=== PATIENT | female | born 1985 | race African-American/Black ===

== ENCOUNTER 2017-05-30 13:02 | Inpatient (IN) | payer SELFPAY ==
[~2017-05-30] VITALS: Ht 177.8 cm; Wt 126.0 kg
[2017-05-30] MEDS ORDERED: PROMETHAZINE HCL 25 MG/ML 1ML IM ONE (15:00)
[2017-05-30] MEDS ORDERED: HYDROmorphone HCL 2 MG/ML VL IM ONE (15:00)
[2017-05-30 15:50] LABS: Basophils # (auto) 0 uL; Basophils % (auto) 0.4 % (0.0-2.0); Eosinophils # (auto) 0 uL; Eosinophils % (auto) 0.8 % (0.0-7.0); Hematocrit 29.1 % (36.0-46.0); Hemoglobin 9.3 g/dL (12.2-16.2); Lymphocytes # (auto) 0.4 uL; Lymphocytes % (auto) 10.2 % (10.0-50.0); Mean Corpuscular Hemoglobin 30.6 pg (28.0-32.0); Mean Corpuscular Volume 95.6 fL (80.0-100.0); Mean Platelet Volume 7.8 fL (6.9-10.8); Monocytes # (auto) 0.4 uL; Monocytes % (auto) 9.7 % (0.0-12.0); Neutrophils # (auto) 3.1 uL; Neutrophils % (auto) 78.9 % (37.0-80.0); Nucleated Red Blood Cells % 0.4 %; Platelet Count (auto) 174 10^3/uL (140-450); Red Cell Distribution Width 18.2 % (11.8-14.3); White Blood Cell 3.9 10^3/uL (4.4-10.8)
[2017-05-30] MEDS ORDERED: SODIUM CHLORIDE 0.9% 1,000 ML IVB ONE (16:07)
[2017-05-30 16:09] LABS: Albumin 3.6 g/dL (3.4-5.0); Alkaline Phosphatase 95 U/L (45-117); Anion Gap 9 (5-15); Aspartate Aminotransferase 28 U/L (15-37); BUN/Creatinine Ratio 21.4; Bilirubin, Total 0.8 mg/dL (0.2-1.0); Blood Urea Nitrogen 12 mg/dL (7-18); Carbon Dioxide 21 mmol/L (21-32); Chloride 108 mmol/L (98-107); GFR African American 162 mL/min; GFR Non-African American 134 mL/min; Glucose 84 mg/dL (74-106); Magnesium 2.2 mg/dL (1.6-2.6); Potassium 3.8 mmol/L (3.5-5.1); Sodium 138 mmol/L (136-145); Total Protein 7.5 g/dL (6.4-8.2)
[2017-05-30] MEDS ORDERED: SODIUM CHLORIDE 0.9% 1,000 ML IV ONE (16:15)
[2017-05-30 16:25] LABS: Urine RBC None Seen /hpf (0 - 4)
[2017-05-30 16:31] LABS: Urine Bilirubin Negative (Negative); Urine Blood Negative /uL (Negative); Urine Color Yellow (Yellow); Urine Glucose Normal (Normal); Urine Ketone Negative (Negative); Urine Nitrite Negative (Negative); Urine Squamous Epithelial Cell FEW /hpf (<5); Urine Urobilinogen Normal (Negative); Urine pH 7.5 (5.0-8.0)
[2017-05-30 16:34] LABS: INR 1.39 (0.9-1.15); Partial Thromboplastin Time 33.4 sec (22.64-33.71); Prothrombin Time 15.2 sec (9.37-12.3)
[2017-05-30] MEDS ORDERED: HYDROcodone-ACET 5/325MG TAB PO PRN (17:30)
[2017-05-30] MEDS ORDERED: TEMAZEPAM 15 MG CAP PO PRN (17:30)
[2017-05-30] MEDS ORDERED: MORPHINE SULF INJ 2 MG/ML SYRINGE 1ML IV PRN ×2 (17:30)
[2017-05-30] MEDS ORDERED: FOLIC ACID 1 MG TAB PO ONE (17:30)
[2017-05-30] MEDS ORDERED: NITROGLYCERIN 0.4 MG SL TAB SL PRN (17:30)
[2017-05-30] MEDS: ASPirin 81 mg TAB PO ONE ×2 (17:30→18:41)
[2017-05-30] MEDS: D5W/SOD CHLO 0.9% 1,000 ML IV SCH ×2 (17:30→18:40)
[2017-05-30] MEDS ORDERED: LACTULOSE 20Gm/30ML SOLN PO PRN (17:30)
[2017-05-30] MEDS ORDERED: LORazepam 0.5 MG TAB PO PRN (17:30)
[2017-05-30] MEDS ORDERED: ACETAMINOPHEN 500 MG TAB PO PRN (17:30)
[2017-05-30] MEDS ORDERED: HYDROmorphone HCL 2 MG/ML VL IV ONE (17:45)
[2017-05-30] MEDS ORDERED: ENOXAPARIN SOD 40 MG/0.4 ML SYRINGE SC ONE (17:45)
[2017-05-30] MEDS: PANTOPRAZOLE 40 MG TAB PO ONE ×2 (17:45→18:41)
[2017-05-30] MEDS ORDERED: diphenhdrAMINE HCL 50 MG/1 ML VL IV ONE (17:45)
[2017-05-30 17:56] LABS: Cholesterol 113 mg/dL (< 200); HDL Cholesterol 76 mg/dL (40-59); LDL Cholesterol 45 mg/dL (< 100); Triglycerides 55 mg/dL (< 150)
[2017-05-30 18:30] VITALS: BP 134/69
[2017-05-30] MEDS ORDERED: HYDROmorphone HCL 2 MG/ML VL IV PRN (19:00)
[2017-05-30] MEDS ORDERED: cefTRIAXone 1GM/50ML D5W 50 ML IV ONE (19:30)
[2017-05-30] MEDS ORDERED: CLOPIDOGREL BISULFATE 75 MG TAB PO ONE (19:30)
[2017-05-30] MEDS ORDERED: diphenhdrAMINE HCL 50 MG/1 ML VL IV PRN (19:30)
[2017-05-30] MEDS ORDERED: WARFARIN SODIUM 5 MG TAB PO ONE (19:35)
[2017-05-30 20:00] VITALS: BP 107/62
[2017-05-30] MEDS: diphenhdrAMINE HCL 50 MG/1 ML VL IV PRN (20:08)
[2017-05-30] MEDS: HYDROmorphone HCL 2 MG/ML VL IV PRN (20:08)
[2017-05-30 21:30] VITALS: BP 107/62
[2017-05-30] MEDS: CLINDAMYCIN 600MG IV 50 ML IV SCH (21:34)
[2017-05-30] MEDS: HYDROXYUREA 500 MG CAP PO SCH (21:34)
[2017-05-30] MEDS ORDERED: ATORVASTATIN 20 MG TAB PO SCH (22:00)
[2017-05-31] MEDS: diphenhdrAMINE HCL 50 MG/1 ML VL IV PRN ×3 (00:13→07:59)
[2017-05-31] MEDS: HYDROmorphone HCL 2 MG/ML VL IV PRN ×3 (00:16→07:55)
[2017-05-31] MEDS: D5W/SOD CHLO 0.9% 1,000 ML IV SCH ×2 (01:16→13:30)
[2017-05-31 05:22] VITALS: BP 116/72
[2017-05-31] MEDS: ENOXAPARIN SOD 40 MG/0.4 ML SYRINGE SC SCH ×2 (05:43→20:21)
[2017-05-31] MEDS: HYDROXYUREA 500 MG CAP PO SCH ×4 (05:43→23:24)
[2017-05-31] MEDS: CLINDAMYCIN 600MG IV 50 ML IV SCH ×2 (05:43→14:00)
[2017-05-31 06:55] LABS: Basophils # (auto) 0 uL; Eosinophils # (auto) 0 uL; Eosinophils % (auto) 1.4 % (0.0-7.0); Hemoglobin 9.5 g/dL (12.2-16.2); Lymphocytes # (auto) 0.6 uL; Lymphocytes % (auto) 18.2 % (10.0-50.0); Mean Corpuscular Hemoglobin 30.6 pg (28.0-32.0); Mean Corpuscular Hgb Conc. 32.9 g/dL (32.0-36.0); Mean Platelet Volume 7.6 fL (6.9-10.8); Monocytes # (auto) 0.3 uL; Monocytes % (auto) 8.8 % (0.0-12.0); Neutrophils # (auto) 2.4 uL; Neutrophils % (auto) 70.6 % (37.0-80.0); Nucleated Red Blood Cells % 0.3 %; Platelet Count (auto) 109 10^3/uL (140-450); Red Cell Distribution Width 18.1 % (11.8-14.3); White Blood Cell 3.5 10^3/uL (4.4-10.8)
[2017-05-31 06:57] LABS: INR 1.28 (0.9-1.15); Partial Thromboplastin Time 23.5 sec (22.64-33.71)
[2017-05-31 08:00] VITALS: BP 117/70
[2017-05-31 09:00] VITALS: BP 117/70
[2017-05-31] MEDS ORDERED: HYDROmorphone HCL 2 MG/ML VL IV PRN ×2 (09:30→17:45)
[2017-05-31] MEDS: MYCOPHENOLATE 500 MG TAB PO SCH ×2 (11:09→22:00)
[2017-05-31] MEDS: TOPIRAMATE 100 MG TAB PO SCH (11:11)
[2017-05-31] MEDS: FOLIC ACID 1 MG TAB PO SCH (11:11)
[2017-05-31] MEDS: CITALOPRAM HYDROBR 20 MG TAB PO SCH (11:11)
[2017-05-31] MEDS: OXcarbazepine 300 MG TAB PO SCH ×3 (11:12→23:24)
[2017-05-31] MEDS: PANTOPRAZOLE 40 MG TAB PO SCH (11:13)
[2017-05-31] MEDS: predniSONE 20 MG TAB PO SCH (11:13)
[2017-05-31] MEDS: buPROPion HCL 75 MG TAB PO SCH ×2 (11:13→22:00)
[2017-05-31] MEDS: CLOPIDOGREL BISULFATE 75 MG TAB PO SCH (11:14)
[2017-05-31] MEDS: ASPirin 81 mg TAB PO SCH (11:14)
[2017-05-31] MEDS: HYDROXYCHLOROQUINE SULFATE 200 MG TAB PO SCH ×2 (11:14→23:25)
[2017-05-31] MEDS: cefTRIAXone 1GM/50ML D5W 50 ML IV SCH (11:15)
[2017-05-31] MEDS: CARVEDILOL 3.125 MG TAB PO SCH ×2 (11:24→22:00)
[2017-05-31 13:00] VITALS: BP 110/50
[2017-05-31] MEDS ORDERED: HYDROmorphone HCL 2 MG/ML VL IM ONE (14:00)
[2017-05-31] MEDS ORDERED: diphenhdrAMINE HCL 50 MG/1 ML VL IM ONE (14:15)
[2017-05-31] MEDS: CYCLOBENZAPRINE HCL 10 MG TAB PO SCH ×2 (14:20→23:26)
[2017-05-31] MEDS: QUEtiapine FUMARATE 100 MG TAB PO SCH ×2 (14:20→23:25)
[2017-05-31] MEDS: GABAPENTIN 300 MG CAP PO SCH ×2 (14:20→23:25)
[2017-05-31] MEDS ORDERED: WARFARIN SODIUM 5 MG TAB PO ONE (17:00)
[2017-05-31 17:23] VITALS: BP 121/74
[2017-05-31] MEDS ORDERED: diphenhdrAMINE HCL 50 MG/1 ML VL IV PRN (17:45)
[2017-05-31] MEDS ORDERED: diphenhdrAMINE HCL 50 MG/1 ML VL IM PRN (19:30)
[2017-05-31] MEDS: HYDROmorphone HCL 2 MG/ML VL IM PRN ×2 (19:52→23:44)
[2017-05-31 20:00] VITALS: BP 121/74
[2017-05-31] MEDS: ATORVASTATIN 20 MG TAB PO SCH (22:00)
[2017-05-31] MEDS ORDERED: LIDOCAINE 1% HCL (LOCAL ANESTH.) INJ 20ML MDV ID ONE (23:00)
[2017-05-31] MEDS: ZOLPIDEM TARTRATE 5 MG TAB PO PRN (23:24)
[2017-06-01] MEDS ORDERED: diphenhdrAMINE HCL 50 MG/1 ML VL IV PRN ×2 (01:15→12:30)
[2017-06-01] MEDS: CLINDAMYCIN 600MG IV 50 ML IV SCH ×4 (01:36→21:30)
[2017-06-01] MEDS: D5W/SOD CHLO 0.9% 1,000 ML IV SCH ×2 (01:37→09:30)
[2017-06-01 05:00] VITALS: BP 137/73
[2017-06-01] MEDS: HYDROmorphone HCL 2 MG/ML VL IV PRN ×6 (05:24→21:30)
[2017-06-01] MEDS: HYDROXYUREA 500 MG CAP PO SCH ×4 (05:29→21:31)
[2017-06-01] MEDS: GABAPENTIN 300 MG CAP PO SCH ×3 (05:29→21:31)
[2017-06-01] MEDS: ENOXAPARIN SOD 40 MG/0.4 ML SYRINGE SC SCH ×2 (05:30→17:51)
[2017-06-01] MEDS: QUEtiapine FUMARATE 100 MG TAB PO SCH ×3 (05:30→21:31)
[2017-06-01] MEDS: CYCLOBENZAPRINE HCL 10 MG TAB PO SCH ×3 (05:30→21:32)
[2017-06-01 08:00] VITALS: BP 101/61
[2017-06-01] MEDS: cefTRIAXone 1GM/50ML D5W 50 ML IV SCH (08:20)
[2017-06-01 09:01] LABS: Basophils # (auto) 0 uL; Basophils % (auto) 0.5 % (0.0-2.0); Eosinophils # (auto) 0 uL; Hematocrit 25.5 % (36.0-46.0); Hemoglobin 8.1 g/dL (12.2-16.2); Lymphocytes # (auto) 0.5 uL; Lymphocytes % (auto) 17.6 % (10.0-50.0); Mean Corpuscular Hemoglobin 30.6 pg (28.0-32.0); Mean Corpuscular Hgb Conc. 31.8 g/dL (32.0-36.0); Mean Corpuscular Volume 96.2 fL (80.0-100.0); Mean Platelet Volume 7.7 fL (6.9-10.8); Monocytes # (auto) 0.3 uL; Monocytes % (auto) 12.1 % (0.0-12.0); Neutrophils # (auto) 1.9 uL; Neutrophils % (auto) 68.8 % (37.0-80.0); Nucleated Red Blood Cells % 0.2 %; Platelet Count (auto) 143 10^3/uL (140-450); Red Cell Distribution Width 18.6 % (11.8-14.3); White Blood Cell 2.8 10^3/uL (4.4-10.8)
[2017-06-01 09:19] LABS: BUN/Creatinine Ratio 21.7; Calcium 7.3 mg/dL (8.5-10.1); Potassium 3.3 mmol/L (3.5-5.1)
[2017-06-01 09:38] LABS: INR 1.39 (0.9-1.15); Partial Thromboplastin Time 34.8 sec (22.64-33.71); Prothrombin Time 15.2 sec (9.37-12.3)
[2017-06-01 09:39] LABS: Temperature: 22.4 C (20.0-25.0)
[2017-06-01] MEDS: SODIUM CHLOR 0.9% PF (SALINE LOCK) 10ML VIAL IV SCH ×2 (09:57→21:32)
[2017-06-01] MEDS: CITALOPRAM HYDROBR 20 MG TAB PO SCH (09:59)
[2017-06-01] MEDS: FOLIC ACID 1 MG TAB PO SCH (09:59)
[2017-06-01] MEDS: CLOPIDOGREL BISULFATE 75 MG TAB PO SCH (09:59)
[2017-06-01] MEDS: PANTOPRAZOLE 40 MG TAB PO SCH (09:59)
[2017-06-01] MEDS: TOPIRAMATE 100 MG TAB PO SCH (09:59)
[2017-06-01] MEDS: HYDROXYCHLOROQUINE SULFATE 200 MG TAB PO SCH ×2 (10:00→21:31)
[2017-06-01] MEDS: MYCOPHENOLATE 500 MG TAB PO SCH ×2 (10:00→21:34)
[2017-06-01] MEDS: OXcarbazepine 300 MG TAB PO SCH ×2 (10:00→21:30)
[2017-06-01] MEDS: buPROPion HCL 75 MG TAB PO SCH ×2 (10:00→21:31)
[2017-06-01] MEDS: ASPirin 81 mg TAB PO SCH (10:01)
[2017-06-01] MEDS: CARVEDILOL 3.125 MG TAB PO SCH ×2 (10:01→21:31)
[2017-06-01] MEDS: predniSONE 20 MG TAB PO SCH (10:01)
[2017-06-01 11:30] VITALS: BP 101/61
[2017-06-01 12:16] LABS: Anisocytosis Slight; Burr Cells FEW; Ovalocytes FEW; Platelet Estimate Adequate; Schistocytes FEW; Tear Drop Cells FEW
[2017-06-01] MEDS: SOD CHL 0.9%/ KCL 20MEQ 1,000 ML IV SCH ×2 (12:57→21:32)
[2017-06-01] MEDS ORDERED: WARFARIN SODIUM 2.5 MG TAB PO ONE (17:00)
[2017-06-01 17:44] VITALS: BP 113/68
[2017-06-01 21:30] VITALS: BP 124/66
[2017-06-01] MEDS: ATORVASTATIN 20 MG TAB PO SCH (21:30)
[2017-06-01] MEDS: PROMETHAZINE HCL 25 MG/ML 1ML IV PRN (21:30)
[2017-06-01] MEDS: ZOLPIDEM TARTRATE 5 MG TAB PO PRN (21:31)
[2017-06-01 23:48] VITALS: BP 118/83
[2017-06-02] MEDS: HYDROmorphone HCL 2 MG/ML VL IV PRN ×6 (02:19→19:36)
[2017-06-02] MEDS: PROMETHAZINE HCL 25 MG/ML 1ML IV PRN (02:19)
[2017-06-02 05:06] VITALS: BP 120/73
[2017-06-02] MEDS: QUEtiapine FUMARATE 100 MG TAB PO SCH ×3 (05:42→21:42)
[2017-06-02] MEDS: HYDROXYUREA 500 MG CAP PO SCH ×4 (05:42→21:43)
[2017-06-02] MEDS: CLINDAMYCIN 600MG IV 50 ML IV SCH ×3 (05:42→21:41)
[2017-06-02] MEDS: ENOXAPARIN SOD 40 MG/0.4 ML SYRINGE SC SCH ×2 (05:42→18:15)
[2017-06-02] MEDS: CYCLOBENZAPRINE HCL 10 MG TAB PO SCH ×3 (05:42→21:43)
[2017-06-02] MEDS: GABAPENTIN 300 MG CAP PO SCH ×3 (05:43→21:42)
[2017-06-02 08:00] VITALS: BP 129/68
[2017-06-02 09:44] LABS: Basophils # (auto) 0 uL; Basophils % (auto) 0.6 % (0.0-2.0); Eosinophils # (auto) 0.1 uL; Eosinophils % (auto) 1.2 % (0.0-7.0); Hematocrit 30.4 % (36.0-46.0); Hemoglobin 9.5 g/dL (12.2-16.2); Lymphocytes # (auto) 0.6 uL; Lymphocytes % (auto) 14.3 % (10.0-50.0); Mean Corpuscular Hemoglobin 30.3 pg (28.0-32.0); Mean Corpuscular Hgb Conc. 31.4 g/dL (32.0-36.0); Mean Corpuscular Volume 96.6 fL (80.0-100.0); Mean Platelet Volume 7.4 fL (6.9-10.8); Monocytes # (auto) 0.4 uL; Monocytes % (auto) 8.3 % (0.0-12.0); Neutrophils # (auto) 3.4 uL; Neutrophils % (auto) 75.6 % (37.0-80.0); Nucleated Red Blood Cells % 0.2 %; Platelet Count (auto) 161 10^3/uL (140-450); White Blood Cell 4.5 10^3/uL (4.4-10.8)
[2017-06-02 09:56] LABS: BUN/Creatinine Ratio 25.5; Calcium 8.2 mg/dL (8.5-10.1); INR 1.54 (0.9-1.15); Partial Thromboplastin Time 33.4 sec (22.64-33.71); Prothrombin Time 16.9 sec (9.37-12.3)
[2017-06-02 09:58] LABS: Red Cell Distribution Width 20.2 % (11.8-14.3)
[2017-06-02] MEDS: HYDROXYCHLOROQUINE SULFATE 200 MG TAB PO SCH ×2 (10:00→21:42)
[2017-06-02 10:03] VITALS: BP 129/68
[2017-06-02] MEDS: OXcarbazepine 300 MG TAB PO SCH ×2 (10:54→21:44)
[2017-06-02] MEDS: TOPIRAMATE 100 MG TAB PO SCH (10:55)
[2017-06-02] MEDS: ASPirin 81 mg TAB PO SCH (10:55)
[2017-06-02] MEDS: PANTOPRAZOLE 40 MG TAB PO SCH (10:55)
[2017-06-02] MEDS: CLOPIDOGREL BISULFATE 75 MG TAB PO SCH (10:55)
[2017-06-02] MEDS: FOLIC ACID 1 MG TAB PO SCH (10:56)
[2017-06-02] MEDS: predniSONE 20 MG TAB PO SCH (10:56)
[2017-06-02] MEDS: buPROPion HCL 75 MG TAB PO SCH ×2 (10:56→21:43)
[2017-06-02] MEDS: CITALOPRAM HYDROBR 20 MG TAB PO SCH (10:57)
[2017-06-02] MEDS: CARVEDILOL 3.125 MG TAB PO SCH ×2 (10:58→21:43)
[2017-06-02 11:07] LABS: Platelet Estimate Adequate
[2017-06-02] MEDS: MYCOPHENOLATE 500 MG TAB PO SCH ×2 (11:07→21:42)
[2017-06-02 11:08] LABS: Anisocytosis Slight; Schistocytes FEW
[2017-06-02 11:10] LABS: Tear Drop Cells FEW
[2017-06-02] MEDS: SODIUM CHLOR 0.9% PF (SALINE LOCK) 10ML VIAL IV SCH ×2 (12:44→21:44)
[2017-06-02] MEDS ORDERED: HYDROmorphone HCL 2 MG/ML VL IV PRN (13:45)
[2017-06-02] MEDS ORDERED: diphenhdrAMINE HCL 50 MG/1 ML VL IV PRN (13:45)
[2017-06-02 14:53] VITALS: BP 118/65
[2017-06-02] MEDS: diphenhdrAMINE HCL 50 MG/1 ML VL IV PRN (15:18)
[2017-06-02 16:35] VITALS: BP 101/53
[2017-06-02] MEDS ORDERED: WARFARIN SODIUM 10 MG TAB PO ONE (17:00)
[2017-06-02] MEDS ORDERED: WARFARIN SODIUM 2.5 MG TAB PO ONE (17:00)
[2017-06-02] MEDS: SOD CHL 0.9%/ KCL 20MEQ 1,000 ML IV SCH (21:27)
[2017-06-02 21:30] VITALS: BP 124/66
[2017-06-02] MEDS: ATORVASTATIN 20 MG TAB PO SCH (21:42)
[2017-06-02] MEDS: ZOLPIDEM TARTRATE 5 MG TAB PO PRN (22:09)
[2017-06-03] MEDS: diphenhdrAMINE HCL 50 MG/1 ML VL IV PRN ×2 (02:17→10:56)
[2017-06-03] MEDS: HYDROmorphone HCL 2 MG/ML VL IV PRN ×3 (02:17→11:16)
[2017-06-03 05:01] VITALS: BP 114/62
[2017-06-03] MEDS: QUEtiapine FUMARATE 100 MG TAB PO SCH (06:22)
[2017-06-03] MEDS: HYDROXYUREA 500 MG CAP PO SCH (06:22)
[2017-06-03] MEDS: GABAPENTIN 300 MG CAP PO SCH (06:22)
[2017-06-03] MEDS: CYCLOBENZAPRINE HCL 10 MG TAB PO SCH (06:22)
[2017-06-03] MEDS: CLINDAMYCIN 600MG IV 50 ML IV SCH (06:23)
[2017-06-03] MEDS: ENOXAPARIN SOD 40 MG/0.4 ML SYRINGE SC SCH (07:08)
[2017-06-03 08:00] VITALS: BP 106/50
[2017-06-03 09:00] VITALS: BP 106/50
[2017-06-03] MEDS: SODIUM CHLOR 0.9% PF (SALINE LOCK) 10ML VIAL IV SCH (10:00)
[2017-06-03] MEDS: MYCOPHENOLATE 500 MG TAB PO SCH ×2 (10:00→14:55)
[2017-06-03] MEDS: CARVEDILOL 3.125 MG TAB PO SCH (10:00)
[2017-06-03 11:12] LABS: INR 2.01 (0.9-1.15); Partial Thromboplastin Time 35.3 sec (22.64-33.71); Prothrombin Time 22.1 sec (9.37-12.3)
[2017-06-03] MEDS: SOD CHL 0.9%/ KCL 20MEQ 1,000 ML IV SCH (11:15)
[2017-06-03] MEDS: ASPirin 81 mg TAB PO SCH (11:23)
[2017-06-03] MEDS: predniSONE 20 MG TAB PO SCH (11:23)
[2017-06-03] MEDS: FOLIC ACID 1 MG TAB PO SCH (11:23)
[2017-06-03] MEDS: buPROPion HCL 75 MG TAB PO SCH (11:23)
[2017-06-03] MEDS: HYDROXYCHLOROQUINE SULFATE 200 MG TAB PO SCH (11:24)
[2017-06-03] MEDS: CITALOPRAM HYDROBR 20 MG TAB PO SCH (11:24)
[2017-06-03] MEDS: PANTOPRAZOLE 40 MG TAB PO SCH (11:25)
[2017-06-03] MEDS: OXcarbazepine 300 MG TAB PO SCH (11:25)
[2017-06-03] MEDS: CLOPIDOGREL BISULFATE 75 MG TAB PO SCH (11:26)
[2017-06-03] MEDS: TOPIRAMATE 100 MG TAB PO SCH (11:27)
[2017-06-03 13:00] VITALS: BP 107/66
[2017-06-03 15:17] VITALS: BP 107/66
[2017-06-03] MEDS ORDERED: WARFARIN SODIUM 5 MG TAB PO ONE (17:00)
== END 2017-06-03 16:54 | disposition home or self-care (01) | DRG 811 ==
LOC: ER 13:05 → TELE 13:06 → TELE-EAST 18:18
PROVIDERS: ADMIT Internal Medicine; ATTEND Internal Medicine
PROC: 02HV33Z Insertion of Infusion Device into Superior Vena Cava, Percutaneous Approach (ICD-10-PCS; principal; 2017-05-31)
DX: D57.00 Hb-SS disease with crisis, unspecified (principal); I21.3 ST elevation (STEMI) myocardial infarction of unspecified site; C91.00 Acute lymphoblastic leukemia not having achieved remission; D68.61 Antiphospholipid syndrome; F11.20 Opioid dependence, uncomplicated; I69.351 Hemiplegia and hemiparesis following cerebral infarction affecting right dominant side; L03.114 Cellulitis of left upper limb; Z68.41 Body mass index [BMI] 40.0-44.9, adult; E66.01 Morbid (severe) obesity due to excess calories; I10 Essential (primary) hypertension; E78.5 Hyperlipidemia, unspecified; F31.9 Bipolar disorder, unspecified; G40.409 Other generalized epilepsy and epileptic syndromes, not intractable, without status epilepticus; G47.10 Hypersomnia, unspecified; G89.29 Other chronic pain; I25.10 Atherosclerotic heart disease of native coronary artery without angina pectoris; D63.8 Anemia in other chronic diseases classified elsewhere; I25.2 Old myocardial infarction; Z95.5 Presence of coronary angioplasty implant and graft; Z90.49 Acquired absence of other specified parts of digestive tract; Z83.2 Family history of diseases of the blood and blood-forming organs and certain disorders involving the immune mechanism; Z79.02 Long term (current) use of antithrombotics/antiplatelets; Z79.82 Long term (current) use of aspirin; Z80.3 Family history of malignant neoplasm of breast; Z79.899 Other long term (current) drug therapy; Z86.711 Personal history of pulmonary embolism; Z86.718 Personal history of other venous thrombosis and embolism; Z79.01 Long term (current) use of anticoagulants
CPT/HCPCS: 36415; 36569; 70450; 71010; 73200; 80048; 80053; 80061; 80307; 81001; 82550; 82607; 82746; 82947; 83735; 84443; 84484; 84702; 85025; 85045; 85610; 85652; 85730; 93005; 93306; 93886; 93971; 94761; 95819; 96365; 96367; 96372; 96375; 97116; 97530; J0696; J3490; J7042; J7517